=== PATIENT | female | born 1990 | race Two or more races ===

== ENCOUNTER 2022-07-30 22:44 | Emergency (ER) | payer MEDICAID ==
[2022-07-31] MEDS ORDERED: Ketorolac 30 MG/ML SDV IM ONE (00:27)
== END 2022-07-31 00:38 | disposition home or self-care (01) ==
LOC: DL.ED 22:44
DX: M79.671 Pain in right foot (principal); Z88.0 Allergy status to penicillin; Z88.2 Allergy status to sulfonamides
CPT/HCPCS: 96372; 99282; 99283; J1885

== ENCOUNTER 2025-02-14 12:55 | Emergency (ER) | payer MEDICAID ==
[2025-02-14] MEDS ORDERED: diphenhydrAMINE 50 MG/ML SDV IM ONE (13:03)
[2025-02-14] MEDS: methylPREDNISolone Sodium Succinate 40 MG/1 ML SDV IVPUSH ONE (13:23)
[2025-02-14] MEDS: diphenhydrAMINE 50 MG/ML SDV IV ONE (13:23)
[2025-02-14] MEDS: EPINEPHrine 1 MG/ML SDV ONE (13:24)
[2025-02-14] MEDS: EPINEPHrine 1 MG/ML SDV IM ONE (13:24)
[2025-02-14] MEDS ORDERED: Take Home: predniSONE 20 MG, 4 Tab Pack PO ONE (14:24)
== END 2025-02-14 14:37 | disposition home or self-care (01) ==
LOC: DL.ED 12:55
DX: T63.441A Toxic effect of venom of bees, accidental (unintentional), initial encounter (principal); T78.2XXA Anaphylactic shock, unspecified, initial encounter; Z88.0 Allergy status to penicillin; Z88.2 Allergy status to sulfonamides; Z79.899 Other long term (current) drug therapy; Z86.16 Personal history of COVID-19
CPT/HCPCS: 96361; 96372; 96374; 96375; 99283; J0169; J1200; J1308; J2919; J7030; 99284

== ENCOUNTER 2025-02-14 23:33 | Emergency (ER) | payer MEDICAID | END 2025-02-15 00:33 | disposition home or self-care (01) | LOC: DL.ED 23:33 | DX: T63.441A Toxic effect of venom of bees, accidental (unintentional), initial encounter (principal); F17.210 Nicotine dependence, cigarettes, uncomplicated; Z88.0 Allergy status to penicillin; Z88.2 Allergy status to sulfonamides; Z79.899 Other long term (current) drug therapy; Z86.16 Personal history of COVID-19 | CPT/HCPCS: 99282; 99283 ==